=== PATIENT | female | born 1965 | race Caucasian/White ===

== ENCOUNTER 2018-02-01 15:09 | Emergency (ER) | payer BC ==
[2018-02-01 15:33] VITALS: BP 137/85
--- NOTE | 2018-02-01 15:46 | UC ---
Laceration HPI - HPI Summary HPI Summary: 52 y/o female presents to the urgent care c/o Laceration to index finger right hand. - History Of Current Complaint Chief Complaint: UCLaceration Stated Complaint: FINGER LAC WC Time Seen by Provider: 02/01/18 15:45 Hx Obtained From: Patient Laceration Location: Finger - RT index Pain Intensity: 5 - Allergies/Home Medications Allergies/Adverse Reactions: Allergies Allergy/AdvReac Type Severity Reaction Status Date / Time Adhesive Tape Allergy Rash Verified 02/01/18 15:33 Home Medications: Home Medications rOPINIRole TAB* [Requip*] 4 mg PO BEDTIME 02/01/18 [History Confirmed 02/01/18] PMH/Surg Hx/FS Hx/Imm Hx - Surgical History Surgical History: Yes Surgery Procedure, Year, and Place: EGD- WITH ANESTHESIA- [facility] [place]. WISDOM TEETH. Gastric Bypass 2013 - Family History Known Family History: Positive: Unknown - Social History Alcohol Use: Rare Alcohol Amount: "very seldom" Substance Use Type: None Smoking Status (MU): Current Some Day Smoker Type: Cigarettes Amount Used/How Often: 1/2 PPD X 1 YEAR Have You Smoked in the Last Year: Yes When Did the Patient Quit Smoking/Using Tobacco: 2011 - Immunization History Most Recent Influenza Vaccination: 2014 Most Recent Tetanus Shot: UP TO DATE Most Recent Pneumonia Vaccination: NEVER Physical Exam - Summary Physical Exam Summary: Vital Signs Reviewed: Yes General: well developed, well nourished female sitting in the examining table w/ o any apparent distress Eye Exam: Normal Eyes: Positive: Conjunctiva Clear - PERRLA, EOMI, fundi grossly normal ENT: Positive: Normal ENT inspection, Hearing grossly normal, Pharynx normal, TMs normal Neck: Positive: Supple, Nontender, No Lymphadenopathy Respiratory: Positive: Chest non-tender, Lungs clear, Normal breath sounds, No respiratory distress Cardiovascular: Positive: RRR, No Murmur, Pulses Normal, Brisk Capillary Refill Abdomen Description: Positive: Nontender, No Organomegaly, Soft. Negative: CVA Tenderness (R), CVA Tenderness (L) Bowel Sounds: Positive: Present Musculoskeletal: Positive: Strength Intact, ROM Intact, No Edema Neurological: Positive: Alert, Muscle Tone Normal Psychological Exam: Normal Skin: Positive: medial side side of RT 32nd phlanx with a linear superficial laceration about 0.4cm cm in size and semilunar in shape, bleeding stopped w/ pressure, no foreign body observed. mild tenderness to palpation, FROM of RT hand and index finger, sensation intact, capillary refill brisk, and pulses WNL. Triage Information Reviewed: Yes Vital Signs: Initial Vital Signs Temp 97.4 F 02/01/18 15:29 Pulse 74 02/01/18 15:29 Resp 16 02/01/18 15:29 BP 137/85 02/01/18 15:29 Pulse Ox 100 02/01/18 15:29 Laceration Repair - Laceration Repair 1 Description: Irregular - semilunar in shape Laceration Size After Repair: Length (cm) - 0.4cm Modified For Repair: No Cleansing Completed Via Routine Prep: Yes Irrigation With Pressure Irrigation Device: Yes Closure Material: Skin Adhesive, SteriStrips Closure Method: Single Layer Suture Of: Skin Discharge - Discharge Plan Condition: Stable Disposition: HOME Patient Education Materials: Laceration (ED), Skin Adhesive Care (ED) Forms: *Work Release Referrals: Juan Arellano MD [Primary Care Provider] - If Needed Additional Instructions: 1-Please apply topical antibiotic over the wound if you noticed redness around or infection develops. Keep wound clean and dry 2--Take Ibuprofen or Tylenol PO q6-8hrs prn for pain or swelling. 4- If you develop fever or redness w/ yellowish drainage please return to the Urgent care for further management - Billing Disposition and Condition Condition: STABLE Disposition: HOME
[2018-02-01] MEDS ORDERED: Tetan/Diph/Pertus SYR(Tdap)* 0.5 ML SYR(BOOSTRIX) use SYR IM ONE (16:21)
== END 2018-02-01 16:43 | disposition home or self-care (01) ==
LOC: UCEAST 15:09
DX: S61.210A Laceration without foreign body of right index finger without damage to nail, initial encounter (principal); W45.8XXA Other foreign body or object entering through skin, initial encounter; Y93.9 Activity, unspecified; Y92.9 Unspecified place or not applicable; Y99.0 Civilian activity done for income or pay; Z23 Encounter for immunization; Z91.048 Other nonmedicinal substance allergy status; Z72.0 Tobacco use
CPT/HCPCS: 12001; 90471; 90715; 99202; G0463

== ENCOUNTER 2018-03-03 13:17 | Emergency (ER) | payer BC ==
--- NOTE | 2018-03-03 13:34 | UC ---
Skin Complaint HPI - HPI Summary HPI Summary: 52 yo female presents with painful and itchy rash to left back of head and left neck first noticed 3 days ago. Started with pain and itchiness. Yesterday noticed a red spot on her left neck. Pain from this area is radiating up to her parietal region. Denies fever, chills, recent illness, drainage. - History of Current Complaint Time Seen by Provider: 03/03/18 13:34 Stated Complaint: SKIN COMPLAINT Hx Obtained From: Patient Onset/Duration: Gradual Onset Onset Severity: Mild Current Severity: Moderate Pain Intensity: 7 Pain Scale Used: 0-10 Numeric - Allergy/Home Medications Allergies/Adverse Reactions: Allergies Allergy/AdvReac Type Severity Reaction Status Date / Time Adhesive Tape Allergy Rash Verified 03/03/18 13:37 Home Medications: Home Medications Calcium Citrate TAB* [Citracal TAB*] 200 mg PO DAILY 03/03/18 [History Confirmed 03/03/18] Cyanocobalamin TAB* [Vitamin B12 TAB*] 500 mcg PO DAILY 03/03/18 [History Confirmed 03/03/18] Ferrous Gluconate [Iron] 237 mg PO DAILY 03/03/18 [History Confirmed 03/03/18] diPHENhydraMINE PO* [Benadryl PO 25 MG TAB*] 25 mg PO Q6H PRN 03/03/18 [History Confirmed 03/03/18] Review of Systems Constitutional: Negative Skin: Rash ENT: Negative Respiratory: Negative Cardiovascular: Negative Neurovascular: Negative Neurological: Negative Psychological: Negative All Other Systems Reviewed And Are Negative: Yes PMH/Surg Hx/FS Hx/Imm Hx - Additional Past Medical History Additional PMH: RLS Previously Healthy: Yes - Surgical History Surgical History: Yes Surgery Procedure, Year, and Place: EGD- WITH ANESTHESIA- [facility] – [place]. WISDOM TEETH. Gastric Bypass 2013 - Family History Known Family History: Positive: Unknown, Cardiac Disease - Social History Occupation: Employed Full-time Lives: With Family Alcohol Use: Rare Alcohol Amount: "very seldom" Substance Use Type: None Smoking Status (MU): Current Some Day Smoker Type: Cigarettes Amount Used/How Often: 1/2 PPD X 1 YEAR Have You Smoked in the Last Year: Yes When Did the Patient Quit Smoking/Using Tobacco: 2011 - Immunization History Most Recent Influenza Vaccination: 2014 Most Recent Tetanus Shot: UP TO DATE Most Recent Pneumonia Vaccination: NEVER Physical Exam - Summary Physical Exam Summary: GENERAL: NAD. WDWN. No pain distress. SKIN: Left neck: one area of 5mm blister-like mildly erythematous rash. TTP left occipital region and left neck. No streaking, bleeding, or drainage. NECK: Supple. Nontender. No lymphadenopathy. HEENT: Head: AT/NC Eyes: No lesions. Conjunctiva clear without inflammation or discharge. Ears: No lesions. Hearing grossly normal. TMs intact, no bulging, erythema, or edema. CHEST: No accessory muscle use. Breathing comfortably and in no distress. CV: RRR. Without m/r/g. NEURO: Alert. CN II-XII grossly intact. PSYCH: Age appropriate behavior. Triage Information Reviewed: Yes Course/Dx - Course Course Of Treatment: Suspect shingles. Rx for valacyclovir. - Diagnoses Provider Diagnoses: Shingles Discharge - Sign-Out/Discharge Documenting (check all that apply): Discharge/Admit/Transfer - Discharge Plan Condition: Stable Disposition: HOME Prescriptions: ValACYclovir (*) [Valtrex 1 GM(*)] 1 gm PO TID #21 tab Patient Education Materials: Shingles (ED) Referrals: Juan Arellano MD [Primary Care Provider] - Additional Instructions: If you develop a fever, shortness of breath, chest pain, new or worsening symptoms - please call your PCP or go to the ED. Your blood pressure was high at todays visit. Please see your primary provider within 4 weeks for recheck and re-evaluation. - Billing Disposition and Condition Condition: STABLE Disposition: HOME
[2018-03-03 13:36] VITALS: BP 158/85
== END 2018-03-03 14:14 | disposition home or self-care (01) ==
LOC: UCEAST 13:17
DX: B02.9 Zoster without complications (principal); Z87.891 Personal history of nicotine dependence
CPT/HCPCS: 99212; G0463

== ENCOUNTER 2019-06-01 13:28 | Emergency (ER) | payer BC ==
[2019-06-01 13:41] VITALS: BP 137/89
[2019-06-01] MEDS ORDERED: Acetaminophen TAB* 325 MG PO ONE (14:02)
--- NOTE | 2019-06-01 14:19 | UC ---
Hand/Wrist HPI - HPI Summary HPI Summary: 53-year-old female who presents with left thumb pain for 3 days. Patient states pain began Tuesday night after mowing the lawn she is unsure what she did to it. Reports a throbbing 8/10 pain in her left thumb worse with movement. Patient tried naproxen as well as a wrist splint which helped a little bit. Patient denies fevers or chills, no known trauma to the area. Patient is right-handed - History Of Current Complaint Chief Complaint: UCUpperExtremity Stated Complaint: THUMB PAIN Time Seen by Provider: 06/01/19 13:51 Pain Intensity: 10 - Allergies/Home Medications Allergies/Adverse Reactions: Allergies Allergy/AdvReac Type Severity Reaction Status Date / Time Adhesive Tape Allergy Rash Verified 06/24/18 15:53 PMH/Surg Hx/FS Hx/Imm Hx Previously Healthy: Yes - Surgical History Surgical History: Yes Surgery Procedure, Year, and Place: [place]- [place] [facility] [place]DOM [place]. Gastric Bypass 2013 - Family History Known Family History: Positive: Unknown, Cardiac Disease - Social History Alcohol Use: Rare Alcohol Amount: "very seldom" Substance Use Type: None Smoking Status (MU): Current Some Day Smoker Type: Cigarettes Amount Used/How Often: 1/2 PPD X 1 YEAR Have You Smoked in the Last Year: Yes When Did the Patient Quit Smoking/Using Tobacco: 2011 - Immunization History Most Recent Influenza Vaccination: 2014 Most Recent Tetanus Shot: UP TO DATE Most Recent Pneumonia Vaccination: NEVER Review of Systems All Other Systems Reviewed And Are Negative: Yes Musculoskeletal: Positive: Arthralgia Physical Exam - Summary Physical Exam Summary: General: Well appearing, no distress Cardiovascular: Skin is well perfused Pulmonary: No respiratory distress, no tachypnea Abdomen: Non-distended Skin: Warm, pink, dry MSK:Hand PE Tenderness to the thenar eminence and L first MTP Motor: Opposition of thumb and first finger intact but with pain Able to cross first and second finger Able to extend thumb Able to flex and extend wrist Able to spread fingers Sensory: Sensation intact in 1st, 2nd, and 5th digits Pulse: 2+ radial pulse intact. Brisk cap refill. Psych: Normal affect Neuro: A&Ox3 Vital Signs: Initial Vital Signs Temp 37.0 C 06/01/19 13:39 Pulse 67 06/01/19 13:39 Resp 16 08/16/19 13:39 BP 137/89 06/01/19 13:39 Pulse Ox 100 06/01/19 13:39 Re-Evaluation - Re-Evaluation First Eval Change: Improved - XR negative for fracture shows possible radial collateral ligament injury. We'll have her placed in a thumb spica, and follow-up with orthopedics Hand/Wrist Course/Dx - Course Course Of Treatment: 53-year-old female presents with atraumatic left thumb pain Physical exam with tenderness in the thenar eminence and the first MTP of the left hand. No known trauma, no evidence of infection. Suspect could be secondary to DeQuervain tendonitis. Check an x-ray of the thumb however low suspicion for bony abnormality. Patient will use a thumb spica splint for pain control and follow-up with orthopedics as needed - Differential Dx/Diagnosis Provider Diagnosis: Radial collateral ligament sprain, Thumb pain Discharge - Sign-Out/Discharge Documenting (check all that apply): Patient Departure All imaging exams completed and their final reports reviewed: Yes - Discharge Plan Condition: Stable Disposition: HOME Patient Education Materials: Finger Sprain (ED) Referrals: Juan Arellano MD [Primary Care Provider] - Hilario Alamo MD [Medical Doctor] - 7 Days (for thumb injury ) Additional Instructions: You were seeen at urgent care for left thumb pain. Your x-ray did not show any fractures but did show possibly injury to your radial collateral ligament. You can wear a thumb spica splint for comfort, take Motrin 600 mg every 8 hours or Aleve twice a day. Do NOT take motrin and aleve at the same time. Please follow up with orthopedics if you have continued pain If any lab work or imaging was not completed at the time of discharge, you will be called with any relevant results. Please seek medical attention or go to the emergency department for any worsening or concerning symptoms. Please follow up with your primary care doctor in 2-3 days. It was a pleasure taking care of you today. - Billing Disposition and Condition Condition: STABLE Disposition: Home
== END 2019-06-01 14:59 | disposition home or self-care (01) ==
LOC: UCEAST 13:28
DX: S53.22XA Traumatic rupture of left radial collateral ligament, initial encounter (principal); X58.XXXA Exposure to other specified factors, initial encounter; Y93.H2 Activity, gardening and landscaping; Y92.017 Garden or yard in single-family (private) house as the place of occurrence of the external cause; Y99.8 Other external cause status; F17.210 Nicotine dependence, cigarettes, uncomplicated
CPT/HCPCS: 99211; A9270-GY; G0463

== ENCOUNTER 2019-09-21 15:33 | Emergency (ER) | payer BC ==
[2019-09-21 17:35] LABS: Hematocrit 39 % (35-47); Hemoglobin 13.1 g/dL (12.0-16.0); Mean Corpuscular HGB Conc 34 g/dL (31-36); Mean Corpuscular Hemoglobin 30 pg (27-31); Mean Corpuscular Volume 87 fL (80-97); Mean Platelet Volume 10.1 fL (7.4-10.4); Platelet Count 201 10^3/uL (150-450); Red Blood Count 4.43 10^6 /uL (3.70-4.87); Red Cell Distribution Width 15 % (10-15); White Blood Count 5.8 10^3/uL (3.5-10.8)
[2019-09-21 17:56] LABS: INR 1.13 (0.82-1.09)
[2019-09-21 18:07] LABS: Albumin 4.1 g/dL (3.2-5.2); Albumin/Globulin Ratio 1.6 (1-3); BUN/Creatinine Ratio 23.8 (8-20); Calcium 9.5 mg/dL (8.6-10.3); EGFR African American 85.2 (>60); EGFR Non-African American 70.4 (>60); Globulin 2.6 g/dL (2-4); Potassium 4.2 mmol/L (3.5-5.0); Total Bilirubin 0.4 mg/dL (0.2-1.0); Total Protein 6.7 g/dL (6.4-8.9)
[2019-09-21 18:16] LABS: ABS Basophils 0.1 10^3/ul (0-0.2); ABS Eosinophils 0.1 10^3/ul (0-0.6); ABS Lymphocytes 1.3 10^3/ul (1.0-4.8); ABS Monocytes 0.4 10^3/ul (0-0.8); ABS Neutrophils 3.9 10^3/ul (1.5-7.7); Eosinophil % 2.6 %; Lymphocyte % 22.9 %
--- NOTE | 2019-09-21 19:56 | ED ---
Abdominal Pain/Female - HPI Summary HPI Summary: This pt is a 53 Y/O F presenting to [facility] accompanied by her with a CC of abdominal pain that is rated a 5/10 in severity and started on 09/13/19. She states that she was feeling this way on 09/17/19 while she was at work and had abdominal cramping. She states that yesterday she had increased abdominal pain and felt like a bear was squeezing the top of my back. She states that she went home and took a hot bath which seemed to alleviate some of her symptoms. She states that today she still had the abdominal pain and began to experience chest pain that was described as stabbing from 1200 to 1400 that began while she was sitting in a drive through for lunch. She states that the CP is less than when the onset began but states that it is still present. She states that she has not taken any medications to alleviate her CP. She has no aggravating factors. She states that she has nausea and has had a normal diet. She denies any vomiting, urinary symptoms, and cough. She states that she has a PMHx of Erica-en-Y gastric bypass surgery. - History of Current Complaint Chief Complaint: EDChestPainROMI Stated Complaint: CHEST PAIN/ABD PAIN PER PT Time Seen by Provider: 09/21/19 19:32 Hx Obtained From: Patient Onset/Duration: Sudden Onset, Lasting Weeks - 1, Still Present Timing: Constant Severity Initially: Moderate Severity Currently: Moderate Pain Intensity: 5 Pain Scale Used: 0-10 Numeric Location: Diffuse Radiates: No Character: Cramping Aggravating Factor(s): Nothing Alleviating Factor(s): Other: - states a shower helped slightly Associated Signs and Symptoms: Positive: Chest Pain - described as stabbing, worse from 1200 to 1400, Back Pain, Nausea. Negative: Cough, Urinary Symptoms, Vomiting Allergies/Adverse Reactions: Allergies Allergy/AdvReac Type Severity Reaction Status Date / Time Adhesive Tape Allergy Rash Verified 06/24/18 15:53 Home Medications: Home Medications Magnesium Amino Acid Chelate 250 mg PO DAILY 09/21/19 [History Confirmed ] Mv-Min/Iron/Folic/Calcium/Vitk [Women's Daily Formula Tablet] 1 each PO DAILY [History Confirmed 09/21/19] PMH/Surg Hx/FS Hx/Imm Hx Previously Healthy: Yes Endocrine/Hematology History: Reports: Hx Thyroid Disease Denies: Hx Diabetes Cardiovascular History: Reports: Other Cardiovascular Problems/Disorders - 2012- STRESS TEST IN [place]- PT. STATES FINE Denies: Hx Hypertension Respiratory History: Reports: Hx Sleep Apnea - no c-pap Denies: Hx Asthma, Hx Chronic Obstructive Pulmonary Disease (COPD), Hx Lung Cancer GI History: Reports: Hx Gastroesophageal Reflux Disease - ON MEDICATION FOR Denies: Hx Ulcer Musculoskeletal History: Reports: Hx Arthritis - OSTEO AND RHEUMATOID, Other Musculoskeletal History - SHOULDERS AND BACK OSTEOARTHRITIS Sensory History: Reports: Hx Contacts or Glasses - READING GLASSES Denies: Hx Hearing Aid Opthamlomology History: Reports: Hx Contacts or Glasses - READING GLASSES Neurological History: Reports: Hx Headaches - TX WITH IBUPROFEN- 400-600 MG Psychiatric History: Reports: Hx Anxiety, Hx Depression, Hx Inpatient Treatment - PT. ADMITTED HERSELF FOR SITUATIONAL CRISIS IN THE PAST Denies: Other Psychiatric Issues/Disorders - Cancer History Hx Chemotherapy: No Hx Radiation Therapy: No - Surgical History Surgical History: Yes Surgery Procedure, Year, and Place: EGD- WITH ANESTHESIA- [facility] – [place]. WISDOM TEETH. Gastric Bypass 2013 Hx Anesthesia Reactions: No Infectious Disease History: No Infectious Disease History: Reports: Hx Shingles Denies: Hx Hepatitis, Hx Human Immunodeficiency Virus (HIV), History Other Infectious Disease, Traveled Outside the [place] in Last 30 Days - Family History Known Family History: Positive: Unknown, Cardiac Disease - Social History Occupation: Employed Full-time Lives: With Family Alcohol Use: Rare Alcohol Amount: "very seldom" Hx Substance Use: No Substance Use Type: Reports: None Hx Tobacco Use: Yes Smoking Status (MU): Current Some Day Smoker Type: Cigarettes Amount Used/How Often: 1/2 PPD X 1 YEAR Have You Smoked in the Last Year: Yes Review of Systems - ROS Summary Review of Systems Summary: Home Medications Medication Instructions Recorded Confirmed Type rOPINIRole TAB* [Requip*] 4 mg PO BEDTIME 02/01/18 06/01/19 History Calcium Citrate TAB* [Citracal 200 mg PO DAILY 03/03/18 06/01/19 History TAB*] Cyanocobalamin TAB* [Vitamin B12 500 mcg PO DAILY 03/03/18 06/01/19 History TAB*] Ferrous Gluconate [Iron] 237 mg PO DAILY 03/03/18 06/01/19 History Positive: Chest Pain Negative: Cough Positive: Abdominal Pain, Nausea. Negative: Vomiting Genitourinary: Negative All Other Systems Reviewed And Are Negative: Yes Physical Exam - Summary Physical Exam Summary: General: Well-developed, Well-nourished female. No acute distress. Appears older than her stated age HEENT: Normocephalic, Atraumatic. Eyes: Conjuctiva normal, PERRL. Ears: TMs within normal limits. Nares: (-) discharge, (-) erythema. Oropharynx: Clear, mucous membranes moist, (-) exudates. Neck: Soft, FROM, (-) lymphadenopathy, (-) thyromegaly, (-) JVD. Cardiovascular: Normal sinus rhythm, (-) murmur. Lungs: Clear to auscultation bilaterally (-) wheezes, (-) rales, (-) rhonchi. Abdomen: Soft, Mild upper abdominal tenderness, non-distended, (-) organomegaly , normal bowel sounds. Back: (-) CVA tenderness Extremities: No edema. Skin: Warm, dry, (-) rash. Neuro: Alert and oriented x3, no focal deficits. Psychiatric: Mood normal, affect normal. Triage Information Reviewed: Yes Vital Signs On Initial Exam: Initial Vitals Temp Pulse Resp BP Pulse Ox 98.2 F 75 18 153/87 100 09/21/19 15:44 09/21/19 15:44 09/21/19 15:44 09/21/19 15:44 09/21/19 15:44 Vital Signs Reviewed: Yes Procedures - Sedation Patient Received Moderate/Deep Sedation with Procedure: No Diagnostics - Vital Signs Vital Signs Temp Pulse Resp BP Pulse Ox 09/21/19 17:36 98.9 F 66 18 140/86 99 09/21/19 15:44 98.2 F 75 18 153/87 100 - Laboratory Lab Results: Lab Results 09/21/19 09/21/19 09/21/19 Range/Units 17:27 17:27 17:27 WBC 5.8 (3.5-10.8) 10^3/uL RBC 4.43 (3.70-4.87) 10^6 /uL Hgb 13.1 (12.0-16.0) g/dL Hct 39 (35-47) % MCV 87 (80-97) fL MCH 30 (27-31) pg MCHC 34 (31-36) g/dL RDW 15 (10-15) % Plt Count 201 (150-450) 10^3/uL MPV 10.1 (7.4-10.4) fL Neut % (Auto) 66.5 % Lymph % (Auto) 22.9 % Cass % (Auto) 7.0 % Eos % (Auto) 2.6 % Baso % (Auto) 1.0 % Absolute Neuts (auto) 3.9 (1.5-7.7) 10^3/ul Absolute Lymphs (auto) 1.3 (1.0-4.8) 10^3/ul Absolute Monos (auto) 0.4 (0-0.8) 10^3/ul Absolute Eos (auto) 0.1 (0-0.6) 10^3/ul Absolute Basos (auto) 0.1 (0-0.2) 10^3/ul Absolute Nucleated RBC 0.0 10^3/ul Nucleated RBC % 0.0 INR (Anticoag Therapy) 1.13 H (0.82-1.09) Sodium 140 (135-145) mmol/L Potassium 4.2 (3.5-5.0) mmol/L Chloride 108 (101-111) mmol/L Carbon Dioxide 26 (22-32) mmol/L Anion Gap 6 (2-11) mmol/L BUN 20 (6-24) mg/dL Creatinine 0.84 (0.51-0.95) mg/dL Est GFR ( Amer) 85.2 (>60) Est GFR (Non-Af Amer) 70.4 (>60) BUN/Creatinine Ratio 23.8 H (8-20) Glucose 75 (70-100) mg/dL Calcium 9.5 (8.6-10.3) mg/dL Total Bilirubin 0.40 (0.2-1.0) mg/dL AST 16 (13-39) U/L ALT 17 (7-52) U/L Alkaline Phosphatase 28 L (34-104) U/L Troponin I 0.00 (<0.03) ng/mL Total Protein 6.7 (6.4-8.9) g/dL Albumin 4.1 (3.2-5.2) g/dL Globulin 2.6 (2-4) g/dL Albumin/Globulin Ratio 1.6 (1-3) Result Diagrams: 09/21/19 17:27 09/21/19 17:27 Lab Statement: Any lab studies that have been ordered have been reviewed, and results considered in the medical decision making process. Abdominal Pain Fem Course/Dx - Course Course Of Treatment: 53-year-old female presents with abdominal pain that radiates to her back. Nausea. Patient with very vague nonspecific complaints. No significant physical findings. Workup shows no significant abnormality. Patient given Zofran, Protonix, Tylenol. Discharged home. Follow-up with PCP. Follow-up sooner for any worsening symptoms. - Diagnoses Provider Diagnoses: Chest pain, Abdominal pain Discharge ED - Sign-Out/Discharge Documenting (check all that apply): Patient Departure - discharge - Discharge Plan Condition: Stable Disposition: HOME Patient Education Materials: Chest Pain (ED), Abdominal Pain (ED) Referrals: Juan Arellano MD [Primary Care Provider] - 2 Days Additional Instructions: PLEASE FOLLOW UP WITH YOUR PRIMARY CARE PROVIDER IN 1-3 DAYS TO DISCUSS A STRESS TEST. RETURN TO THE EMERGENCY DEPARTMENT FOR ANY NEW OR WORSENING SYMPTOMS. - Billing Disposition and Condition Condition: STABLE Disposition: Home - Attestation Statements Document Initiated by Scribe: Yes Documenting Scribe: aKyden Johansen Provider For Whom Berna is Documenting (Include Credential): Sarah Patel MD Scribe Attestation: Kayden Gardiner, scribed for Sarah Patel MD on 09/22/19 at 2021. Scribe Documentation Reviewed: Yes Provider Attestation: The documentation as recorded by the Kayden crystal accurately reflects the service I personally performed and the decisions made by me, Sarah Patel MD Status of Scribe Document: Viewed
[2019-09-21] MEDS ORDERED: Ondansetron INJ* 2 MG/ML VIAL IV ONE (19:58)
[2019-09-21] MEDS ORDERED: Pantoprazole IV* 40 MG IV ONE (19:58)
[2019-09-21] MEDS ORDERED: NS 0.9% 1000 ML** 1,000 ML IV ONE (19:58)
[2019-09-21] MEDS ORDERED: Acetaminophen TAB* 325 MG PO ONE (20:55)
[2019-09-21 20:56] LABS: Amylase 26 U/L (29-103)
[2019-09-21 21:47] VITALS: BP 136/87
[2019-09-22] MEDS ORDERED: FOLIC PO SCH (09:00)
[2019-09-22] MEDS ORDERED: FERROUS GLUCONATE PO SCH (09:00)
[2019-09-22] MEDS ORDERED: Calcium Citrate TAB* 200 MG PO SCH (09:00)
[2019-09-22] MEDS ORDERED: VITK PO SCH (09:00)
[2019-09-22] MEDS ORDERED: IRON PO SCH (09:00)
[2019-09-22] MEDS ORDERED: [UNRECOGNIZED DRUG - OTHER] PO SCH (09:00)
[2019-09-22] MEDS ORDERED: CALCIUM PO SCH (09:00)
[2019-09-22] MEDS ORDERED: MV MIN PO SCH (09:00)
[2019-09-22] MEDS ORDERED: MAGNESIUM AMINO ACID CHELATE PO SCH (09:00)
[2019-09-22] MEDS ORDERED: Cyanocobalamin TAB* 500 MCG PO SCH (09:00)
[2019-09-22] MEDS ORDERED: rOPINIRole TAB* 4 MG PO SCH (21:00)
== END 2019-09-21 21:44 | disposition home or self-care (01) ==
LOC: ED 15:33
DX: R07.89 Other chest pain (principal); R10.10 Upper abdominal pain, unspecified; R11.0 Nausea; K21.9 Gastro-esophageal reflux disease without esophagitis; Z98.84 Bariatric surgery status; Z91.048 Other nonmedicinal substance allergy status; Z72.0 Tobacco use
CPT/HCPCS: 36415; 80053; 82150; 83690; 84484; 85025; 85610; 96361; 96374; 96375; 99283; A9270-GY; J2405